=== PATIENT | female | born 1965 | race Hispanic/Latino ===

== ENCOUNTER 2021-06-26 08:45 | Day surgery (SDC) | payer OTHER, MEDICARE ==
[2021-06-19 11:31] LABS: BASOPHILS % (AUTO) 0.9 % (0.0-5.0); EOSINOPHILS % (AUTO) 1.6 % (0.0-8.0); HEMATOCRIT 37.5 % (36-48); LYMPHOCYTES % (AUTO) 23.7 % (21.0-51.0); MEAN CORPUSCULAR HEMOGLOBIN 33.2 pg (27.0-33.0); MEAN CORPUSCULAR HGB CONC 32.8 g/dL (32.0-36.0); MEAN CORPUSCULAR VOLUME 101.4 fL (79-99); MONOCYTES % (AUTO) 9.2 % (3.0-13.0); NEUTROPHILS % (AUTO) 64.4 % (40.0-77.0); PLATELET COUNT (AUTO) 244 K/uL (130-400); RED CELL DISTRIBUTION WIDTH 15.2 % (11.0-15.5); WHITE BLOOD COUNT (AUTO) 5.7 K/uL (4.8-10.8)
[2021-06-19 11:40] LABS: CREATININE 1.2 mg/dL (0.5-1.5); POTASSIUM 4.1 mmol/L (3.5-5.1)
[2021-06-23 13:30] VITALS: BP 106/66
[~2021-06-26] VITALS: Ht 162.6 cm; Wt 70.6 kg
[2021-06-26] VITALS (15 sets, daily range): BP systolic 10–153; BP diastolic 74–84
[~2021-06-26 08:45] MED LIST: DULA1.5P SQ; HYDR-4381 PO; LEVO25CA4 PO; LISI10TA24 PO; PREG100C PO
[2021-06-26] MEDS ORDERED: CEFAZOLIN SODIUM 1 GM VIAL ONE (09:06)
[2021-06-26] MEDS ORDERED: 0.9%NACL 1000ML 1,000 ML IV ONE (09:06)
[2021-06-26] MEDS: CEFAZOLIN SODIUM 1 GM VIAL IVP ONE ×2 (09:21→11:50)
[2021-06-26] MEDS ORDERED: BUPIVACAINE/PF 0.5% 30ML VIAL ONE (10:52)
[2021-06-26] MEDS ORDERED: LIDOCAINE PF 100MG/5ML (2%) SYRINGE 5ML ONE (11:36)
[2021-06-26] MEDS ORDERED: ROCURONIUM 10MG/1ML SYR 10 MG/ML ML ONE (11:37)
[2021-06-26] MEDS ORDERED: MIDAZOLAM HCL 1 MG/ML 2ML VIAL ONE (11:37)
[2021-06-26] MEDS ORDERED: PROPOFOL 10 MG/ML 20ML VIAL IV ONE (11:37)
[2021-06-26] MEDS ORDERED: FENTANYL CITRATE PF 50 MCG/1 ML 2ML VIAL ONE (11:38)
[2021-06-26] MEDS ORDERED: DEXAMETHASONE SOD PHOSPHATE 10MG/ML 1ML VIAL ONE (12:07)
[2021-06-26] MEDS ORDERED: ONDANSETRON 4MG INJ ONE (12:08)
[2021-06-26] MEDS ORDERED: NEOSTIGMINE 5MG/5ML SYR IV ONE (12:32)
[2021-06-26] MEDS ORDERED: GLYCOPYRROLATE 1 MG/5 ML SYRINGE ONE (12:32)
[2021-06-26] MEDS ORDERED: KETOROLAC 30MG VIAL (30MG/ML) ONE (12:33)
[2021-06-26] MEDS ORDERED: MEPERIDINE-PF 25 MG/ML SYG ONE (13:10)
== END 2021-06-26 14:35 | disposition home or self-care (01) ==
LOC: DAH 08:45
PROVIDERS: ATTEND Surgery
DX: K80.44 Calculus of bile duct with chronic cholecystitis without obstruction (principal); Z20.822 Contact with and (suspected) exposure to COVID-19; E11.9 Type 2 diabetes mellitus without complications; I10 Essential (primary) hypertension; Z79.84 Long term (current) use of oral hypoglycemic drugs; Z79.890 Hormone replacement therapy; Z98.84 Bariatric surgery status; Z90.49 Acquired absence of other specified parts of digestive tract; Z90.710 Acquired absence of both cervix and uterus
CPT/HCPCS: 36415; 47562; 80048; 82948 ×2; 85025; 87635; A4215; A4221; A4222; A4223; A4600; A4649 ×3; A4657; A4663; A6260; C1769 ×3; C9803; G0168; J0690; J1100; J1885; J2001; J2175; J2250; J2405; J2704; J2710; J3010; J3490 ×2; J7030 ×3; J7120

== ENCOUNTER 2021-08-15 22:25 | Emergency (ER) | payer OTHER, MEDICARE ==
[~2021-08-15] VITALS: Ht 162.6 cm; Wt 72.6 kg
[2021-08-15 23:08] VITALS: BP 152/90
[2021-08-15] MEDS: LIDOCAINE HCL 1% 20 ML VIAL INJ STA (23:51)
[2021-08-15] MEDS: AMOX/CLAV 875/125MG TAB PO STA (23:55)
[2021-08-15] MEDS: LIDOCAINE HCL 1% 20 ML VIAL ONE (23:57)
[2021-08-16] MEDS ORDERED: AMOX-429 PO (00:13)
[2021-08-16] MEDS ORDERED: IBUP-2088 PO (00:13)
[2021-08-16 00:25] VITALS: BP 148/80
[2021-08-16] MEDS: TETANUS/DIPHTHERIA TOXOID [ADULT] 0.5 ML VIAL IM STA (00:36)
== END 2021-08-16 00:36 | disposition home or self-care (01) ==
LOC: EDH 22:25
DX: S51.811A Laceration without foreign body of right forearm, initial encounter (principal); S61.255A Open bite of left ring finger without damage to nail, initial encounter; S51.851A Open bite of right forearm, initial encounter; S61.234A Puncture wound without foreign body of right ring finger without damage to nail, initial encounter; E11.9 Type 2 diabetes mellitus without complications; Z79.1 Long term (current) use of non-steroidal anti-inflammatories (NSAID); Z79.899 Other long term (current) drug therapy; Z87.442 Personal history of urinary calculi; Z98.84 Bariatric surgery status; W54.0XXA Bitten by dog, initial encounter; X58.XXXA Exposure to other specified factors, initial encounter; Y93.89 Activity, other specified; Y92.89 Other specified places as the place of occurrence of the external cause; Y99.8 Other external cause status
CPT/HCPCS: 12002; 90471; 90714

== ENCOUNTER 2025-11-14 14:28 | Emergency (ER) | payer MEDICARE ==
[~2025-11-14] VITALS: Ht 162.6 cm; Wt 62.1 kg
[~2025-11-14 14:28] MED LIST changes: -DULA1.5P SQ; +FAMO20TA8 PO; -HYDR-4381 PO; +ICOS1CAP PO; +LEVO100C5 PO; -LEVO25CA4 PO; +LINA290C PO; +MAGN500C4 PO; +METR-172 PO; +MONT-39 PO; +Midodrine Hcl PO; +ROSU10TA98 PO
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
[2025-11-14] MEDS ORDERED: ACET-66 PO (15:38)
[2025-11-14] MEDS ORDERED: CEPH500B PO (15:38)
[2025-11-14] MEDS ORDERED: MUPI22O TP (15:38)
[2025-11-14 15:49] VITALS: BP 128/87; PULSE 79; RESP 16; TEMP 98.6; O2SAT 97
[2025-11-14] MEDS: NEOMY SULF/BACITRA/POLYMYXIN B 1 EACH PACKET TP ONE (16:25)
== END 2025-11-14 16:32 | disposition home or self-care (01) ==
LOC: EDH 14:28
DX: S00.01XA Abrasion of scalp, initial encounter (principal); E11.9 Type 2 diabetes mellitus without complications; I10 Essential (primary) hypertension; Z79.890 Hormone replacement therapy; Z79.899 Other long term (current) drug therapy; Z90.49 Acquired absence of other specified parts of digestive tract; Z90.710 Acquired absence of both cervix and uterus; W22.09XA Striking against other stationary object, initial encounter; Y93.89 Activity, other specified; Y92.89 Other specified places as the place of occurrence of the external cause; Y99.8 Other external cause status
CPT/HCPCS: 90471; 90714; 99284